=== PATIENT | male | born 1940 | race Caucasian/White ===

== ENCOUNTER 2024-01-09 14:20 | Emergency (ER) | payer OTHER ==
[2024-01-09] MEDS ORDERED: HYDROcodone/Acetaminophen 10/325 mg Tablet ONE (14:39)
[2024-01-09] MEDS ORDERED: Bacitracin 1 PK ONE (14:39)
== END 2024-01-09 16:20 | disposition home or self-care (01) ==
LOC: NAV ERS 14:20
DX: S09.90XA Unspecified injury of head, initial encounter (principal); S16.1XXA Strain of muscle, fascia and tendon at neck level, initial encounter; S46.812A Strain of other muscles, fascia and tendons at shoulder and upper arm level, left arm, initial encounter; S00.81XA Abrasion of other part of head, initial encounter; S80.212A Abrasion, left knee, initial encounter; S40.212A Abrasion of left shoulder, initial encounter; S50.312A Abrasion of left elbow, initial encounter; V43.52XA Car driver injured in collision with other type car in traffic accident, initial encounter; W22.11XA Striking against or struck by driver side automobile airbag, initial encounter; Y93.89 Activity, other specified; Z95.0 Presence of cardiac pacemaker
CPT/HCPCS: 70450; 71045; 72125